=== PATIENT | female | born 1955 | race Caucasian/White ===

== ENCOUNTER 2016-05-18 19:21 | Emergency (ER) | payer OTHER ==
[~2016-05-18] VITALS: Ht 152.4 cm; Wt 45.5 kg
[~2016-05-18 19:21] MED LIST: ACYC400T2 PO; ALBU8.5H3 INH; ALEN70TA30 PO; BEN25 PO; CIPR500T4 PO; DEXA4TAB PO; FAMO-18 PO; FAMO20TA18 PO; HYDR-3498 PO; HYDR-906 PO; IBUP-1542 PO; IBUP400T22 PO; LORA10TA3 PO; MAG355OR15 PO; NAPR-688 PO; OFLO5DRO7 BOTH EARS; OMEP40CA6 PO; ONDA4TAB35 PO; PATA BOTH EYES; POLY10DR19 LEFT EYE; POTA20TA8 PO; PRED20TA PO
[2016-05-18 19:25] VITALS: Ht 152.4 cm; Wt 45.5 kg
[2016-05-18] MEDS ORDERED: AZIT250T94 PO (20:16)
[2016-05-18] MEDS ORDERED: CARB15DR BOTH EYES (20:17)
[2016-05-18] MEDS ORDERED: BENZ100C70 PO (20:17)
--- NOTE | 2016-05-18 20:27 | ERD ---
ER Documentation Chief Complaint Date/Time DATE: 05/18/16 TIME: 20:19 Chief Complaint Cough x2 wks, Colds x1 week, Pain and redness of the eyes today HPI Patient is a 60-year-old female with past medical history of diabetes, kidney stones, osteoporosis, herniated disc of her back, who presents to emergency department with a cough and rhinorrhea 2 weeks. Patient states that her cough is productive in nature with occasional green phlegm production. Patient also states that she has clear nasal rhinorrhea. He should not denies any fevers, chills, neck pain, neck stiffness. Patient states that she does have head pain when coughing. Patient denies sudden onset of headache or ongoing headache. Patient denies any chest pain, shortness of breath, arm pain, diaphoresis. Patient denies any abdominal pain, nausea, vomiting, diarrhea. Patient also states that this morning she noticed some erythema of her left eye. She denies any trauma or foreign bodies. She denies any vision loss or blurred vision. Patient does wear corrective lens. ROS All systems reviewed and are negative except as per history of present illness. Medications Home Meds Active Scripts Carboxymethylcellulose Sodium* (Refresh Tears*) 15 Ml Drops, 2 DROP BOTH EYES QID, #1 EA Prov:ALONSO FELDER PA-C 05/18/16 Benzonatate* (Tessalon Perle*) 100 Mg Capsule, 100 MG PO Q8H Y for COUGH, #20 CAP Prov:ALONSO FELDER PA-C 05/18/16 Azithromycin* (Zithromax*) 250 Mg Tablet, 250 MG PO .AndreaPACK DIRECTED, #6 TAB TAKE 500 MG (2 TABS) THE FIRST DAY THEN 250 MG (1 TAB) DAYS 2-5 Prov:ALONSO FELDER PA-C 05/18/16 Olopatadine* (Patanol* Ophth) 0.1 % - 5 Ml Drops, 1 DROP BOTH EYES BID for 7 Days, EA Prov:SHELTON AYALA MD 01/07/16 Diphenhydramine Hcl* (Benadryl*) 25 Mg Cap, 25 MG PO Q6, #30 CAP Prov:SHELTON AYALA MD 01/07/16 Prednisone* (Prednisone*) 20 Mg Tab, 60 MG PO DAILY for 5 Days, TAB Prov:SHELTON AYALA MD 01/07/16 Prednisone* (Prednisone*) 20 Mg Tab, 20 MG PO DAILY for 4 Days, TAB Prov:ROB REED MD 11/13/15 Ibuprofen* (Motrin*) 400 Mg Tab, 400 MG PO Q6, #14 TAB Prov:ROB REED MD 11/13/15 Acyclovir* (Acyclovir*) 400 Mg Tablet, 400 MG PO TID, #7 TAB Prov:MONTANA DELGADO PA-C 11/11/15 Hydrocodone/Acetaminophen ([place] 5-325 Tablet) 1 Each Tablet, 1 EACH PO Q6, #12 TAB Prov:MONTANA DELGADO PA-C 11/11/15 Polymyxin B Sulfate-TMP* (Polymyxin B-TMP Eye Drops*) 10 Ml Drops, 1 DROP LEFT EYE QID for 7 Days, EA Prov:FLORA COURTNEY PA-C 08/05/15 Ofloxacin* (Floxin* Otic) 0.3% -10 Ml Soln, 5 DROP BOTH EARS BID for 10 Days, BOTTLE Prov:FLORA COURTNEY PA-C 08/05/15 Omeprazole* (Omeprazole*) 40 Mg Capsule.dr, 40 MG PO DAILY, #30 CAP Prov:SABRA SIDHU MD 06/11/15 Ondansetron Hcl* (Zofran* ODT) 4 mg -ODT Tab.disper, 4 MG PO TID Y for NAUSEA AND OR VOMITING, #20 TAB Prov:SABRA SIDHU MD 06/11/15 Mag Hydrox/Al Hydrox/Simeth (Maalox Ms Liquid) 360 Ml Oral.susp, 2 TSP PO TID, # 24 OZ Prov:SABRA SIDHU MD 06/11/15 Famotidine* (Pepcid*) 20 Mg Tablet, 20 MG PO BID, #30 TAB Prov:SABRA SIDHU MD 06/11/15 Loratadine* (Loratadine*) 10 Mg Tablet, 10 MG PO DAILY, #30 TAB Prov:DANIA ROBERTS NP 04/22/15 Ibuprofen* (Motrin*) 600 Mg Tab, 600 MG PO Q6, #30 TAB Prov:BRETT MIRAMONTES DO 04/15/15 Dexamethasone* (Dexamethasone*) 4 Mg Tablet, 4 MG PO DAILY for 2 Days, TAB Prov:BRETT MIRAMONTES 04/15/15 Naproxen* (Naproxen*) 500 Mg Tablet, 500 MG PO BID Y for PAIN, #30 TAB Prov:EVELINE LOPEZ PA-C 11/20/14 Ciprofloxacin Hcl* (Ciprofloxacin Hcl*) 500 Mg Tablet, 500 MG PO BID for 10 Days , TAB Prov:EVELINE LOPEZ PA-C 11/20/14 Hydrocodone Bit-Acetaminophen* ([place]*) 5-325 Mg Tab, 1 TAB PO Q6 Y for PAIN, # 15 TAB Prov:EVELINE LOPEZ PA-C 11/20/14 Reported Medications Loratadine* (Loratadine*) 10 Mg Tablet, 10 MG PO DAILY, #30 TAB 04/15/15 Potassium Chloride* (Klor-Con*) 10 Meq Tabsr, 10 MEQ PO DAILY, TAB.SA 04/15/15 Albuterol Sulfate* (Proair HFA*) 8.5 Gm Hfa.aer.ad, 2 PUFF INH Q4 Y for WHEEZING AND SOB, INH 02/09/14 Famotidine* (Famotidine*) 20 Mg Tablet, 20 MG PO BID, TAB 02/07/14 Alendronate Sodium* (Fosamax*) 70 Mg Tablet, 70 MG PO Q7D, TAB 02/07/14 Allergies Allergies: Coded Allergies: Pork/Porcine Containing Products (Verified Allergy, Unknown, 08/05/15) PMhx/Soc History of Surgery: Yes (Hysterectomy, lithotripsy) Anesthesia Reaction: No Hx Neurological Disorder: No Hx Respiratory Disorders: No Hx Cardiac Disorders: No Hx Psychiatric Problems: No Hx Miscellaneous Medical Probl: Yes (pre-diabetes; osteoporosis) Hx Alcohol Use: No Hx Substance Use: No Hx Tobacco Use: No Smoking Status: Never smoker FmHx Family History: No diabetes Physical Exam Vitals Vital Signs Date Time Temp Pulse Resp B/P Pulse Ox O2 Delivery O2 Flow Rate FiO2 05/18/16 19:25 97.4 100 20 125/59 99 Physical Exam GENERAL: Well-developed, well-nourished female. No acute distress. Speaking in full sentences. HEAD: Normocephalic, atraumatic. No deformities or ecchymosis. EYE: Pupils equal, round, and reactive to light. EOMs intact. Left eye subconjunctival hemorrhage noted in the medial aspect. Bilateral tearing noted. No periorbital swelling noted bilaterally. Karlos-Pen findings: OS: 14, OD: 16 ENT: External ear without any masses or tenderness. Auditory canals clear bilaterally. TM visualized bilaterally, non-erythematous, non-bulging. Nasal mucosa pink with no discharge. Oropharynx is pink without any tonsillar erythema or exudates. No uvula deviation. No kissing tonsils. NECK: Supple. No meningismus. Normal ROM of the neck. LUNG: Clear to auscultation bilaterally. No rhonchi, wheezing, rales or coarse breath sounds. HEART: Regular rate and rhythm. No murmurs, rubs or gallops. BACK: No midline tenderness. EXTREMITES: Equal pulses bilaterally. No peripheral clubbing, cyanosis or edema. No unilateral leg swelling. NEUROLOGIC: Alert and oriented to person, place and time. Moving all four extremities. 5/5 strength in all extremities. Normal speech. Steady gait SKIN: Normal color. Warm and dry. No rashes or lesions. Procedures/MDM MEDICAL DECISION MAKING: This is a 60-year-old female with a past medical history of diabetes, kidney stones, osteoporosis who presents to the ER with a cough 2 weeks and redness of her left eye which started today. Vital signs were reviewed. Patient was afebrile. Patient was not hypoxic. Eye exam revealed a subconjunctival hemorrhage of her left eye. This is likely due to the patient coughing forcefully. Patient's and her intraocular pressures with within normal limits. ENT exam was normal. Lung exam was normal. Given these findings, the patients presentation is most consistent with acute bronchitis and subconjunctival hemorrhage left eye. I have a much lower clinical concern for pneumonia, meningitis, sinusitis, otitis externa, acute otitis media, strep pharyngitis, epiglottitis or peritonsillar abscess. Low suspicion for acute angle glaucoma, retained foreign body, conjunctivitis, retinal detachment. PRESCRIPTIONS: Zpak, Tessalon Perles, refresh eyedrops DISCHARGE: At this time, patient is stable for discharge and outpatient management. Supportive therapies such as OTC throat lozenges, salt water gurgles, popsicles and jello discussed. I have instructed the patient to follow-up with his/her primary care physician in 1-2 days. I have instructed the patient to promptly return to the ER for any new or worsening symptoms including increased pain, swelling, fever, nausea, vomiting, weakness or difficulty breathing. The patient and/or family expressed understanding of and agreement with this plan. All questions were answered. Home care instructions were provided. Departure Diagnosis: Primary Impression: Acute bronchitis Bronchitis organism: unspecified organism Qualified Code: J20.9 - Acute bronchitis, unspecified organism Additional Impression: Subconjunctival hemorrhage Laterality: left Qualified Code: H11.32 - Subconjunctival hemorrhage, left Condition: Stable Patient Instructions: Acute Bronchitis, Subconjunctival Hemorrhage Referrals: [facility] YOU HAVE RECEIVED A MEDICAL SCREENING EXAM AND THE RESULTS INDICATE THAT YOU DO NOT HAVE A CONDITION THAT REQUIRES URGENT TREATMENT IN THE EMERGENCY DEPARTMENT. FURTHER EVALUATION AND TREATMENT OF YOUR CONDITION CAN WAIT UNTIL YOU ARE SEEN IN YOUR DOCTORS OFFICE WITHIN THE NEXT 1-2 DAYS. IT IS YOUR RESPONSIBILITY TO MAKE AN APPOINTMENT FOR FOLOW-UP CARE. IF YOU HAVE A PRIMARY DOCTOR --you should call your primary doctor and schedule an appointment IF YOU DO NOT HAVE A PRIMARY DOCTOR YOU CAN CALL OUR PHYSICIAN REFERRAL HOTLINE AT IF YOU CAN NOT AFFORD TO SEE A PHYSICIAN YOU CAN CHOSE FROM THE FOLLOWING [facility] [address] [facility]. [facility] [address] [facility] [facility] [address] [facility]. [facility] [address] [facility]. [facility] [address] [facility]. [facility]. [address] [facility]. [facility] YOU HAVE RECEIVED A MEDICAL SCREENING EXAM AND THE RESULTS INDICATE THAT YOU DO NOT HAVE A CONDITION THAT REQUIRES URGENT TREATMENT IN THE EMERGENCY DEPARTMENT. FURTHER EVALUATION AND TREATMENT OF YOUR CONDITION CAN WAIT UNTIL YOU ARE SEEN IN YOUR DOCTORS OFFICE WITHIN THE NEXT 1-2 DAYS. IT IS YOUR RESPONSIBILITY TO MAKE AN APPOINTMENT FOR FOLOW-UP CARE. IF YOU HAVE A PRIMARY DOCTOR --you should call your primary doctor and schedule and appointment IF YOU DO NOT HAVE A PRIMARY DOCTOR YOU CAN CALL OUR PHYSICIAN REFERRAL HOTLINE AT . IF YOU CAN NOT AFFORD TO SEE A PHYSICIAN YOU CAN CHOSE FROM THE FOLLOWING [facility], [facility] INSTITUTIONS: [facility] [address] [place] [address] [facility] [address] [place] [address] [facility] [address] [place] [address] [facility] Hours: Mon - Fri 9:00 AM - 5:00 PM Additional Instructions: Call your primary care doctor TOMORROW for an appointment during the next 1-2 days.See the doctor sooner or return here if your condition worsens before your appointment time. ALONSO FELDER PA-C May 18, 2016 20:27
== END 2016-05-18 20:23 | disposition home or self-care (01) ==
LOC: FTE 19:21
DX: J20.9 Acute bronchitis, unspecified (principal); H11.32 Conjunctival hemorrhage, left eye
CPT/HCPCS: 99284